=== PATIENT | female | born 1990 | race Caucasian/White ===

== ENCOUNTER 2023-05-24 20:59 | Emergency (ER) | payer SELFPAY ==
[2023-05-24] MEDS ORDERED: Ibuprofen 800 MG TAB ONE (21:24)
== END 2023-05-24 22:00 | disposition home or self-care (01) ==
LOC: NAV ERS 20:59
DX: U07.1 COVID-19 (principal)
CPT/HCPCS: 87635; 87804; 99283

== ENCOUNTER 2023-11-07 12:19 | Emergency (ER) | payer SELFPAY | END 2023-11-07 13:26 | disposition home or self-care (01) | LOC: NAV ERS 12:19 | DX: M94.0 Chondrocostal junction syndrome [Tietze] (principal); F84.0 Autistic disorder ==